=== PATIENT | female | born 1950 | race Two or more races ===

== ENCOUNTER 2019-04-23 17:16 | Emergency (ER) | payer OTHER ==
[~2019-04-23] VITALS: Ht 149.9 cm; Wt 65.8 kg
[2019-04-23] MEDS ORDERED: cefTRIAXone 1GM/50ML D5W 50 ML IV ONE (18:00)
[2019-04-23] MEDS ORDERED: SODIUM CHLORIDE 0.9% 500 ML IV ONE (18:08)
[2019-04-23 19:11] LABS: Basophils # (auto) 0 uL; Basophils % (auto) 0.3 % (0.0-2.0); Eosinophils # (auto) 0 uL; Eosinophils % (auto) 0.2 % (0.0-7.0); Hematocrit 33.5 % (36.0-46.0); Hemoglobin 11.1 g/dL (12.2-16.2); Lymphocytes # (auto) 0.6 uL; Lymphocytes % (auto) 9.3 % (10.0-50.0); Mean Corpuscular Hemoglobin 24.4 pg (28.0-32.0); Mean Corpuscular Hgb Conc. 33.1 g/dL (32.0-36.0); Mean Corpuscular Volume 73.6 fL (80.0-100.0); Monocytes # (auto) 0.7 uL; Monocytes % (auto) 12.3 % (0.0-12.0); Neutrophils # (auto) 4.6 uL; Neutrophils % (auto) 77.9 % (37.0-80.0); Platelet Count (auto) 204 10^3/uL (140-450); Red Blood Cells 4.54 10^6/uL (4.0-5.20); Red Cell Distribution Width 16.5 % (11.8-14.3); White Blood Cell 5.9 10^3/uL (4.4-10.8)
[2019-04-23 19:26] LABS: Magnesium 2.6 mg/dL (1.6-2.6)
[2019-04-23 19:31] LABS: Albumin 2.4 g/dL (3.4-5.0); BUN/Creatinine Ratio 15.4; Calcium 8.1 mg/dL (8.5-10.1)
[2019-04-23 19:34] LABS: Bilirubin, Total 0.4 mg/dL (0.2-1.0)
[2019-04-23 19:43] LABS: Potassium 3.7 mmol/L (3.5-5.1)
[2019-04-23] MEDS ORDERED: AZITHROMYCIN 500MG/ 250ML 250 ML IV ONE (19:45)
[2019-04-23 20:48] LABS: Urine Bacteria NONE SEEN /hpf (None Seen); Urine Blood 1+ /uL (Negative); Urine Specific Gravity 1.019 (1.001-1.035); Urine WBC 106 /hpf (0 - 5)
[2019-04-23 21:40] VITALS: BP 141/70
== END 2019-04-23 22:19 | disposition home or self-care (01) ==
LOC: ER 17:16
DX: J18.9 Pneumonia, unspecified organism (principal); N39.0 Urinary tract infection, site not specified; E11.9 Type 2 diabetes mellitus without complications; I10 Essential (primary) hypertension
CPT/HCPCS: 36415; 71046; 74176; 80053; 81001; 83605; 83690; 83735; 84484; 85025; 87040; 93005; 96365; 96366; 96367; 99284; J0456; J0696; J7030